=== PATIENT | female | born 1985 | race African-American/Black ===

== ENCOUNTER 2020-10-05 14:28 | Emergency (ER) | payer SELFPAY ==
[2020-10-05 15:46] VITALS: BP 100/65; PULSE 65; TEMP 97.6; BMI 24.4
[2020-10-05 15:57] LABS: BASO % 0.7 % (0-2.0); HEMATOCRIT 36.7 % (32.4-45.2); HEMOGLOBIN 12.7 GM/dL (10.7-15.3); LYMPH % 24.8 % (8-40); MCH 29.8 pg (25.7-33.7); MCHC 34.6 g/dl (32.0-36.0); MEAN CELL VOLUME 86.3 fl (80-96); MONO % 8.5 % (3.8-10.2); PLATELET COUNT 252 K/MM3 (134-434); RBC 4.25 M/mm3 (3.60-5.2); RDW 12.9 % (11.6-15.6); WHITE BLOOD COUNT 7.5 K/mm3 (4.0-10.0)
[2020-10-05 17:13] LABS: URINE APPEARANCE CLEAR; URINE BILIRUBIN NEGATIVE (NEGATIVE); URINE COLOR YELLOW; URINE GLUCOSE (UA) NEGATIVE (NEGATIVE); URINE KETONE NEGATIVE (NEGATIVE); URINE LEUK ESTERASE NEGATIVE (NEGATIVE); URINE NITRITE NEGATIVE (NEGATIVE); URINE PROTEIN NEGATIVE (NEGATIVE); URINE UROBILINOGEN 0.2 mg/dL (0.2-1.0)
== END 2020-10-05 17:45 | disposition home or self-care (01) ==
LOC: JER 14:28
DX: O20.0 Threatened abortion (principal); Z3A.01 Less than 8 weeks gestation of pregnancy
CPT/HCPCS: 36415; 76801-TC; 76817-TC; 81003; 84702; 85025; 86850; 86900; 86901; 99285-25